=== PATIENT | male | born 1960 | race Caucasian/White ===

== ENCOUNTER 2022-05-01 17:22 | Emergency (ER) | payer OTHER ==
[~2022-05-01] VITALS: Ht 180.3 cm; Wt 95.3 kg
[~2022-05-01 17:22] MED LIST: ANTIVERT50 MG PO; medrol pack PO
[2022-05-01] MEDS ORDERED: NORFLEX100MG PO (21:16)
[2022-05-01] MEDS ORDERED: KETO10TA2 PO (21:16)
== END 2022-05-01 21:29 | disposition home or self-care (01) ==
LOC: ER 17:22
DX: S09.8XXA Other specified injuries of head, initial encounter (principal); S19.89XA Other specified injuries of other specified part of neck, initial encounter; S39.82XA Other specified injuries of lower back, initial encounter; S79.811A Other specified injuries of right hip, initial encounter; S39.848A Other specified injuries of external genitals, initial encounter; W10.2XXA Fall (on)(from) incline, initial encounter; Y93.89 Activity, other specified; Y92.89 Other specified places as the place of occurrence of the external cause

== ENCOUNTER 2022-05-22 08:53 | Emergency (ER) | payer OTHER ==
[~2022-05-22] VITALS: Ht 180.3 cm; Wt 90.7 kg
[~2022-05-22 08:53] MED LIST changes: +KETO10TA2 PO; +NORFLEX100MG PO
== END 2022-05-22 12:43 | disposition home or self-care (01) ==
LOC: ER 08:53
DX: U07.1 COVID-19 (principal)